=== PATIENT | female | born 1975 | race Two or more races ===

== ENCOUNTER → 2025-05-16 | Outpatient (CLI) | payer BC, SELFPAY ==
--- NOTE | 2025-05-16 10:00 | XR_ITS ---
Examination: Breast ultrasound, unilateral, right complete Date and time of exam: May 16, 2025 1053 hours INDICATIONS: Screening examination, diagnosis unspecified lump right breast, physician's order Technique: Real-time tipton scale ultrasonographic imaging performed right breast including all 4 quadrants as well as nipple retroareolar and axillary region. Findings: 10:00 cyst 7 x 6 mm No solid nodules IMPRESSION: BI-RADS Category 2: Benign findings
== END | disposition home or self-care (01) ==
PROVIDERS: Referring Provider Family Medicine; Visit Provider Family Medicine
DX: N63.10 Unspecified lump in the right breast, unspecified quadrant (principal)
CPT/HCPCS: 76641

== ENCOUNTER → 2025-05-31 | Outpatient (CLI) | payer BC, SELFPAY ==
--- NOTE | 2025-05-31 08:45 | XR_ITS ---
Examination: Diagnostic digital mammography, unilateral, right Computer aided detection 3-D breast Tomosynthesis, unilateral Date and time of exam: 05/31/2025, 8:24 AM Comparisons: Ultrasound exam 05/16/2025. Mammogram August 2024 not available. Indications: Further evaluation of abnormality seen on prior exam. Technique: Nonmagnified MLO, CC views of the right breast have been obtained, reconstructed from 3-D Tomosynthesis images. R2 computer aided detection program utilized for evaluation of suspicious masses and/or abnormal calcifications. 3-D Tomosynthesis images obtained. Technologist: Findings: There are scattered areas of fibroglandular density. 9 mm oval mass with partially indistinct borders upper outer quadrant. Otherwise, no No evidence of abnormal masses or suspicious calcifications. Impression: Probably benign upper outer quadrant 9 mm mass as above. Recommend six-month diagnostic ultrasound and mammogram follow-up. BI-RADS category 3: Probably benign, short term follow-up
== END | disposition home or self-care (01) ==
LOC: CDIM 08:12
PROVIDERS: Referring Provider Family Medicine; Visit Provider Family Medicine
DX: R92.331 Mammographic heterogeneous density, right breast (principal); R92.8 Other abnormal and inconclusive findings on diagnostic imaging of breast
CPT/HCPCS: 77061; 77065; G0279